=== PATIENT | female | born 1955 | race Hispanic/Latino ===

== ENCOUNTER → 2020-03-13 | Outpatient (CLI) | payer OTHER ==
--- NOTE | 2020-03-13 13:43 | Diagnostic Imaging Report ---
EXAMINATION: CLAVICLE LEFT INDICATION: Clavicle pain COMPARISON: None FINDINGS: No acute fracture or dislocation. Alignment is anatomic. Moderate degenerative changes of the acromioclavicular joint. Soft tissues appear unremarkable. IMPRESSION: No acute osseous injury. Moderate acromioclavicular joint degenerative changes. Signed by: William Fernandez MD on 03/13/2020 1:40 PM
== END ==
LOC: MAMMO 11:58
PROVIDERS: ATTEND Internal Medicine
DX: Z12.31 Encounter for screening mammogram for malignant neoplasm of breast (principal); S43.82XA Sprain of other specified parts of left shoulder girdle, initial encounter
CPT/HCPCS: 77067

== ENCOUNTER → 2020-03-28 | Outpatient (CLI) | payer MEDICARE, OTHER ==
--- NOTE | 2020-03-28 14:58 | Diagnostic Imaging Report ---
Radiographs of the left shoulder HISTORY: Pain. Lump. COMPARISON: None available. FINDINGS: Bones: No acute displaced fracture. Osseous alignment is within normal limits. Joints: Scattered degenerative change most pronounced at the acromioclavicular joint. No osseous erosion. Soft tissues: The soft tissues appear unremarkable. IMPRESSION: Scattered degenerative change most pronounced at the acromioclavicular joint. No osseous erosion. MRI recommended for further evaluation of the reported lump. Signed by: Dr. Rajiv Mercado M.D. on 03/28/2020 2:55 PM
== END ==
LOC: RAD 13:29
PROVIDERS: ATTEND Internal Medicine
DX: S43.492D Other sprain of left shoulder joint, subsequent encounter (principal)

== ENCOUNTER → 2021-01-03 | Outpatient (CLI) | payer MEDICARE | LOC: MAMMO 10:01 | PROVIDERS: ATTEND Internal Medicine | DX: M81.0 Age-related osteoporosis without current pathological fracture (principal); J44.9 Chronic obstructive pulmonary disease, unspecified | CPT/HCPCS: 77080 ==

== ENCOUNTER → 2021-02-25 | Outpatient (CLI) | payer MEDICARE | LOC: MAMMO 14:13 | PROVIDERS: ATTEND Internal Medicine | DX: Z12.31 Encounter for screening mammogram for malignant neoplasm of breast (principal) | CPT/HCPCS: 77067 ==

== ENCOUNTER → 2021-03-18 | Outpatient (CLI) | payer MEDICARE | LOC: US 09:51 | PROVIDERS: ATTEND Internal Medicine | DX: R22.2 Localized swelling, mass and lump, trunk (principal) | CPT/HCPCS: 76882 ==

== ENCOUNTER → 2022-07-22 | Outpatient (CLI) | payer MEDICARE | LOC: MAMMO 12:02 | PROVIDERS: ATTEND Internal Medicine | DX: Z12.31 Encounter for screening mammogram for malignant neoplasm of breast (principal); Z00.00 Encounter for general adult medical examination without abnormal findings | CPT/HCPCS: 71046; 77067 ==

== ENCOUNTER → 2022-07-31 | Outpatient (CLI) | payer MEDICARE | LOC: DX 10:50 | PROVIDERS: ATTEND Internal Medicine | DX: M85.88 Other specified disorders of bone density and structure, other site (principal) | CPT/HCPCS: 77080 ==